=== PATIENT | male | born 1975 | race African-American/Black ===

== ENCOUNTER 2016-10-30 14:50 | Emergency (ER) | payer OTHER ==
[2016-10-30 15:02] VITALS: BP 120/72
--- NOTE | 2016-10-30 20:32 | UC ---
Kyung Serna Edward, scribed for Jon Dillon MD on 10/30/16 at 1506 . Upper Extremity HPI - HPI Summary HPI Summary: 41 y/o male presents to [facility] with acute on chronic R shoulder pain starting 1 month ago that became worse today. Today his R arm also went limp and is in constant pain. The pain goes down to the forearm, described as a throbbing pain. Pt states there is a clicking noise when he moves his shoulder. The pain in his shoulder is aggravated with movement. The pain in his R shoulder radiates to the clavicle and back to his scapula. Pt remembers putting on a backpack around a month ago that may have caused the pain, but is unsure. Pt has trouble sleeping at night due to pain. Associated sx: muscle pain in neck, decreased ROM in R shoulder. Denies numbness/tingling in R arm. No SHx on shoulder. Pt is R hand dominant. Pt had an XR at [facility] that was negative, per pt. - History of Current Complaint Chief Complaint: UCUpperExtremity Stated Complaint: SHOULDER INJURY Hx Obtained From: Patient Onset/Duration: Gradual Onset, Lasting Weeks - Around 1 month ago, Still Present Severity Initially: Moderate Severity Currently: Severe Location Of Pain: Is Discrete @ - R shoulder, Radiates To - Clavicle and scapula , down arm today Character: Throbbing Aggravating Factor(s): Movement Associated Signs And Symptoms: Positive: Other - Neck pain (muscle). Negative: Numbness/Tingling Related History: Dominant Hand Right - Allergies/Home Medications Allergies/Adverse Reactions: Allergies Allergy/AdvReac Type Severity Reaction Status Date / Time No Known Allergies Allergy Verified 10/30/16 14:58 PMH/Surg Hx/FS Hx/Imm Hx - Additional Past Medical History Additional PMH: Positive: shingles Previously Healthy: No - Surgical History Surgical History: None - Family History Known Family History: Positive: Other - [place] - Social History Occupation: Employed Full-time Alcohol Use: Occasionally Substance Use Type: None Smoking Status (MU): Heavy Every Day Tobacco Smoker Type: Cigarettes Amount Used/How Often: 1 PPD Review of Systems Constitutional: Negative Skin: Negative Eyes: Negative ENT: Negative Respiratory: Negative Cardiovascular: Negative Gastrointestinal: Negative Genitourinary: Negative Motor: Negative Neurovascular: Negative Musculoskeletal: Arthralgia - R shoulder pain down arm, Decreased ROM - R shoulder, Myalgia - Neck pain Neurological: Negative - No numbness/tingling Psychological: Negative All Other Systems Reviewed And Are Negative: Yes Physical Exam Triage Information Reviewed: Yes Vital Signs: Initial Vital Signs Temp 98.7 F 10/30/16 14:54 Pulse 82 10/30/16 14:54 Resp 16 10/30/16 14:54 BP 120/72 10/30/16 14:54 Pulse Ox 100 10/30/16 14:54 Vital Signs Reviewed: Yes - Additional Comments The patient is well-nourished in no acute distress and in no acute pain. The skin is warm and dry and skin color reflects adequate perfusion. HEENT: The head is normocephalic and atraumatic. The pupils are equal and reactive. The conjunctivae are clear and without drainage. Nares are patent and without drainage. Mouth reveals moist mucous membranes and the throat is without erythema and exudate. The external ears are intact. The ear canals are patent and without drainage. The tympanic membranes are intact. Neck is supple with full range of motion and non-tender. There are no carotid bruits. There is no neck vein distension. Respiratory: Chest is non-tender. Lungs are clear to auscultation and breath sounds are symmetrical and equal. Cardiovascular: Hear is regular rate and rhythm. There is no murmur or rub auscultated. There is no peripheral edema and pulses are symmetrical and equal. Abdomen: The abdomen is soft and non-tender. There are normal bowel sounds heard in all four quadrants and there is no organomegaly palpated. Musculoskeletal: There is no back pain noted. There is marked tenderness with insertion of the R rotator cuff.. Distal neurovascular intact. The radial, medial and ulnar nerves are intact. There is good capillary refill. There are no obvious deformities in the R shoulder. There is pain with external rotation, abduction and some pain with internal rotation. There is no tenderness in the neck. The paravertebral musculature is intact. There is no peripheral edema or calf tenderness elicited. Neurological: Patient is alert and oriented to person, place and time. The patient has symmetrical motor strength in all four extremities. Cranial nerves are grossly intact. Deep tendon reflexes are symmetrical and equal in all four extremities. Psychiatric: The patient has an appropriate affect and does not exhibit any anxiety or depression. Upper Extremity Course/Dx - Course Course Of Treatment: 41 y/o male presents to [facility] with acute on chronic R shoulder pain starting 1 month ago that became worse today. Today his R arm also went limp and is in constant pain. The pain goes down to the forearm, described as a throbbing pain. Pt states there is a clicking noise when he moves his shoulder. The pain in his shoulder is aggravated with movement. The pain in his R shoulder radiates to the clavicle and back to his scapula. Pt remembers putting on a backpack around a month ago that may have caused the pain , but is unsure. Pt has trouble sleeping at night due to pain. Associated sx: muscle pain in neck, decreased ROM in R shoulder. Denies numbness/tingling in R arm. No SHx on shoulder. Pt is R hand dominant. Pt had an XR at [facility] that was negative, per pt. Informed patient of lack of services here - no MRI, no injections. Pt will be given anti-inflammatories, pain medication and a sling, and d/c home with f/u with the orthopedic surgeon stations superintendent (Dr. Sharpe). - Differential Dx/Diagnosis Differential Diagnosis/HQI/PQRI: Bursitis, Strain, Sprain, Other - rotator cuff injury Provider Diagnoses: R shoulder pain secondary to rotator cuff injury Discharge - Discharge Plan Condition: Stable Disposition: HOME Prescriptions: HYDROcodone/ACETAMIN 5-325 MG* [[place] 5-325 TAB*] 1 tab PO Q6H PRN #20 tab MDD 4 PRN Reason: pain Meloxicam [Mobic] 7.5 mg PO BID #60 tab Patient Education Materials: Shoulder Pain (ED) Referrals: Maykel Sharpe MD [Medical Doctor] - 3 Days (Please follow up in 2-3 days) The documentation as recorded by the Kyung benavides Edward accurately reflects the service I personally performed and the decisions made by , Jon Dillon MD.
== END 2016-10-30 15:30 | disposition home or self-care (01) ==
LOC: UCEAST 14:50
DX: M75.101 Unspecified rotator cuff tear or rupture of right shoulder, not specified as traumatic (principal); F17.210 Nicotine dependence, cigarettes, uncomplicated; M25.511 Pain in right shoulder; X58.XXXA Exposure to other specified factors, initial encounter
CPT/HCPCS: 99213; G0463